=== PATIENT | male | born 1965 | race Caucasian/White ===

== ENCOUNTER → 2017-01-28 | Outpatient (CLI) | payer OTHER | LOC: FIMAGING 07:02 | PROVIDERS: ATTEND Surgery | DX: C43.9 Malignant melanoma of skin, unspecified (principal) | CPT/HCPCS: 78195; A9520 ==

== ENCOUNTER 2017-02-13 07:10 | Day surgery (SDC) | payer OTHER ==
[2017-02-13] MEDS ORDERED: ceFAZolin 2 GM/DEXTROSE 100 ML IV ONE (07:27)
[2017-02-13] MEDS ORDERED: LR 1,000 ML IV SCH (07:30)
[2017-02-13] MEDS ORDERED: LIDOCAINE 1% 2 ML INJ ONE (07:31)
[2017-02-13] MEDS ORDERED: BUPIVACAINE 0.5% 30 ML SDV ONE (07:38)
[2017-02-13] MEDS ORDERED: LIDOCAINE 0.5% 50 ML SDV ONE (07:39)
[2017-02-13] MEDS ORDERED: LIDOCAINE 1% 300 MG/30 ML SDV ONE (07:40)
--- NOTE | 2017-02-13 08:01 | PDHPUP ---
History & Physical Update H&P update statement: This history and physical update is based on an assessment of the patient which was completed after admission or registration (within 24 hours), but prior to the surgery/procedure. H&P update: H&P reviewed & patient examined, no change in patient's condition since H&P completed
[2017-02-13] MEDS ORDERED: LR 1,000 ML IV ONE (08:02)
[2017-02-13] MEDS ORDERED: LIDOCAINE 1% 2 ML INJ ID PRN (08:02)
--- NOTE | 2017-02-13 08:02 | POSTOPPROG ---
Post Op Note Date of Operation: 02/13/17 Surgeon: Aurora Cm Hvac Mechanical Engineer: Lora Anesthesiologist: Nolberto Anesthesia: GET(General Endotracheal) Pre-op Diagnosis: metastatic melanoma Post-op Diagnosis: same Indication: 51 yo with metastatic melanoma Procedure: r axillary dissection Inf/Abcess present in the surg proc area at time of surgery?: No EBL: Minimal Drains: Handy Sharma Specimen(s): r axillary nodes
[2017-02-13] MEDS ORDERED: MIDAZOLAM 2 MG/2 ML VIAL IVP ONE (08:11)
[2017-02-13] MEDS ORDERED: ROCURONIUM 50 MG/5 ML VIAL ONE (08:12)
[2017-02-13] MEDS ORDERED: HYDROmorphONE/DILAUDID 2 MG/ML INJ ONE (08:12)
[2017-02-13] MEDS ORDERED: PROPOFOL 200 MG/20 ML VIAL ONE (08:12)
--- NOTE | 2017-02-13 08:20 | PDANEPAE ---
ANE History of Present Illness Patient is an otherwise healthy male with Right Breast Mass. Otherwise healthy with no difficulties with anesthesia. ANE Past Medical History - Cardiovascular History Hx Hypertension: No Hx Arrhythmias: No Hx Chest Pain: No Hx Coronary Artery / Peripheral Vascular Disease: No Hx CHF / Valvular Disease: No Hx Palpitations: No - Pulmonary History Hx COPD: No Hx Asthma/Reactive Airway Disease: No Hx Recent Upper Respiratory Infection: No Hx Oxygen in Use at Home: No - Neurologic History Hx Cerebrovascular Accident: No Hx Seizures: No Hx Dementia: No - Endocrine History Hx Diabetes: No - Renal History Hx Renal Disorders: No - Liver History Hx Hepatic Disorders: No - Neurological & Psychiatric Hx Hx Neurological and Psychiatric Disorders: No - Cancer History Hx Cancer: Yes - Congenital Disorder History Hx Congenital Disorders: No - GI History Hx Gastrointestinal Disorders: No - Chronic Pain History Chronic Pain: No ANE Review of Systems - Exercise capacity METS (RN): 4 METS ANE Patient History - Allergies Allergies/Adverse Reactions: No Known Allergies Allergy (Verified 02/12/17 14:05) - Home Medications Home Medications: NK [No Known Home Meds] 02/12/17 [Last Taken Unknown] - NPO status NPO Since - Liquids (Date): 02/12/17 NPO Since - Liquids (Time): 22:00 NPO Since - Solids (Date): 02/12/17 NPO Since - Solids (Time): 21:30 - Smoking Hx Smoking Status: Never smoked - Family Anes Hx Family Hx Anesthesia Complications: none ANE Labs/Vital Signs - Vital Signs Blood Pressure: 144/93 Heart Rate: 70 Respiratory Rate: 12 O2 Sat (%): 95 Height: 182.25 cm Weight: 96.615 kg ANE Physical Exam - Airway Mallampati Score: Class 1 - Pulmonary Pulmonary: no respiratory distress - Cardiovascular Cardiovascular: regular rate and rhythym - ASA Status ASA Status: II (right canine with small chips) ANE Anesthesia Plan Urgent/Emergent Case: Edna pena completed preop but documented later for safe timely pt care
[2017-02-13] MEDS ORDERED: fentaNYL 100 MCG/2 ML INJ ONE ×2 (08:29→10:09)
[2017-02-13] MEDS ORDERED: ONDANSETRON 4 MG/2 ML VIAL IVP PRN (08:54)
[2017-02-13] MEDS ORDERED: MEPERIDINE 25 MG/ML SYR IVP PRN (08:54)
[2017-02-13] MEDS ORDERED: fentaNYL 100 MCG/2 ML INJ IVP PRN (08:54)
[2017-02-13] MEDS ORDERED: PROMETHAZINE HCL 25 MG/ML INJ IVP PRN (08:54)
[2017-02-13] MEDS ORDERED: LR 500 ML IV PRN (08:54)
[2017-02-13] MEDS ORDERED: DEXAMETHASONE 4 MG/ML VIAL IVP PRN (08:54)
[2017-02-13] MEDS ORDERED: NALOXONE HCL 0.4 MG/ML INJ IVP PRN (08:54)
[2017-02-13] MEDS ORDERED: OXYCODONE/APAP 5/325 TAB PO PRN (08:54)
[2017-02-13] MEDS ORDERED: HYDROmorphONE/DILAUDID 1 MG/ML SYR IVP PRN (08:54)
--- NOTE | 2017-02-13 10:01 | POSTANESTH ---
Post Anesthetic Evaluation Cardiovascular Status: Normal, Stable Respiratory Status: Normal, Stable Level of Consciousness/Mental Status: Can Participate in Eval Pain Control: Adequate, Prn Tx Ordered Nausea/Vomiting Control: Adequate, Prn Tx Ordered Complications Possibly Related to Anesthesia: None Noted
[2017-02-13] MEDS ORDERED: OXYCODONE/APAP 5/325 TAB ONE (10:47)
[2017-02-13 11:03] VITALS: PULSE 61; RESP 16; TEMP 97.9
[2017-02-13 11:41] VITALS: BP 138/94; O2SAT 93
--- NOTE | 2017-02-13 13:11 | GOP ---
[f rep st] OPERATIVE REPORT DATE OF OPERATION: 02/13/2017 SURGEON: Aurora Cm MD PAPERHANGER ASSISTANT: FLOYD Portillo. ANESTHESIA: General. ANESTHESIOLOGIST: Vale Arvizu MD. PREOPERATIVE DIAGNOSIS: Metastatic melanoma. POSTOPERATIVE DIAGNOSIS: Metastatic melanoma. PROCEDURE PERFORMED: Right axillary lymph node dissection. FINDINGS: Darkened, enlarged lymph nodes. SPECIMENS: Right axillary lymph nodes. ESTIMATED BLOOD LOSS: 15 cc. INDICATIONS: The patient is a 51-year-old man, who was diagnosed with melanoma on his abdomen. I t ook him to the operating room for wide local excision and sentinel lymph node. The sentinel lymph n ode, unfortunately, was positive. He presents for axillary dissection. His PET scan did not show a ny other uptake in his body. DESCRIPTION OF PROCEDURE: The patient was brought into the operating room, placed supine on the tab le, and general anesthesia was administered. His axilla was prepped and draped in the usual sterile fashion. I infiltrated the area with 10 cc of 0.5% Marcaine prior to making incisions. I made an incision. I had to dissect down through some scar tissue. I was able to identify some superficial nerves and protect them. I then entered the axillary space a little bit laterally, and once in the axillary space, I could find some enlarged lymph nodes. I pulled these up while protecting the thor acodorsal nerve bundle, axillary vein, and the long thoracic nerve. Hemostasis was achieved in the axilla. I placed a 15 round silicone drain that exited the right lateral chest. It was sutured in place with 3-0 nylon. The wound was closed with 3-0 Vicryl, followed by 4-0 Monocryl. Mastisol, St sharon-Strips, and a sterile dressing were applied. He was awakened in the operating room, extubated, transferred to PACU in stable condition. /[id number]/MODL
== END 2017-02-13 11:31 | disposition home or self-care (01) ==
LOC: FSGY 07:10
PROVIDERS: ATTEND Surgery
PROC: 07B50ZX Excision of Right Axillary Lymphatic, Open Approach, Diagnostic (ICD-10-PCS; principal; 2017-02-13 08:45)
DX: R59.0 Localized enlarged lymph nodes (principal); C43.59 Malignant melanoma of other part of trunk
CPT/HCPCS: J0690; J1170; J2250; J2704; J3010

== ENCOUNTER → 2017-09-04 | Outpatient (CLI) | payer BC ==
[~2017-09-04] MED LIST: LIDOCAINE 1% 300 MG/30 ML SDV ONE
== END ==
LOC: FIMAGING 07:31
PROVIDERS: ATTEND Physician Assistant
PROC: 07B53ZX Excision of Right Axillary Lymphatic, Percutaneous Approach, Diagnostic (ICD-10-PCS; principal; 2017-09-04)
PROC: BH47ZZZ Ultrasonography of Upper Extremity (ICD-10-PCS; 2017-09-04)
DX: R59.0 Localized enlarged lymph nodes (principal); C43.9 Malignant melanoma of skin, unspecified